=== PATIENT | female | born 1965 | race Caucasian/White ===

== ENCOUNTER 2018-10-13 10:13 | Emergency (ER) | payer OTHER, SELFPAY ==
[2018-10-13 10:15] VITALS: BP 178/90; PULSE 108; RESP 19; TEMP 35.8; O2SAT 99; BMI 40.1
[2018-10-13] MEDS: 0.9% Normal Saline 1,000 ML 125 ML IV (10:30)
--- NOTE | 2018-10-13 10:31 | CT_ITS ---
STUDY: CT ABDOMEN AND PELVIS WITHOUT CONTRAST REASON FOR EXAM: Female, 53 years old. Lower abdominal pain. RADIATION DOSAGE (If Supplied By Facility): CTDIvol = ( 21.95 ) mGy, DLP = ( 1102.42 ) mGycm TECHNIQUE: Transaxial images were obtained from the dome of the diaphragm to the symphysis pubis without oral contrast, and without intravenous contrast. Sagittal and coronal images were reconstructed. Individualized dose optimization techniques were used for this CT. COMPARISON: None. FINDINGS: The visualized lung bases are unremarkable. The visualized portions of the heart are within normal limits. Normal liver. The patient is status post cholecystectomy. Normal spleen. Normal pancreas. Normal bilateral adrenal glands. Normal right kidney. Normal left kidney. Normal visualized stomach. Normal small intestine. There is diverticulosis, with thickening of the colon wall, and pericolonic inflammation changes consistent with acute diverticulitis. The appendix is visualized and appears normal. There is scattered atherosclerotic calcification of the abdominal aorta, without a demonstrated aneurysm. Normal inferior vena cava. Normal retroperitoneum. Normal urinary bladder. There is absence of the uterus consistent with a prior hysterectomy. Normal abdominal wall. There are diffuse degenerative changes of the visualized lumbar spine. Minimal anterior listhesis of L4 on L5. CT/Abdomen/Pelvis without Cont IMPRESSION: Noncomplicated sigmoid diverticulitis. Electronically Signed: Delfin Langford MD at 12:33 EST , Service support ,
--- NOTE | 2018-10-13 10:31 | EKG12_ITS ---
Test Reason : ABD PAIN Blood Pressure : / mmHG Vent. Rate : 102 BPM Atrial Rate : 102 BPM P-R Int : 142 ms QRS Dur : 104 ms QT Int : 358 ms P-R-T Axes : 062 023 048 degrees QTc Int : 466 ms Sinus tachycardia Otherwise normal ECG Confirmed by GEOFFREY REYNA, ANNA ([id number]), editorial clerk NICOLAS BECKETT ([id number] on 10/17/2018 10:38:56 AM Referred By: CONNOR Confirmed By:ANNA HALE MD
[2018-10-13 11:35] LABS: Bacteria 0 SEEN /hpf (None Seen); Mucous, Urine 0 SEEN /hpf (<or=2+); Red Blood Cells-Urine 0 SEEN /hpf (0-5); White Blood Cells 0 SEEN /hpf (0-5)
[2018-10-13 11:37] LABS: Color, Urine Yellow (Yellow); Glucose, Dipstick Normal (Normal); Ketone-Dipstick Negative (Negative); Leukocyte Esterase-Dipstick Negative /ul (Negative); Nitrite-Dipstick Negative (Negative); Occult Blood-Urine Negative /ul (Negative); Protein-Dipstick Negative (Negative); Specific Gravity, Urine 1.005 (1.002-1.030); Urine Bilirubin Dipstick Negative (Negative); Urine Clarity Clear (Clear); Urine Urobilinogen Normal (Normal)
[2018-10-13 11:39] LABS: Absolute Lymphocyte Count 1.57 X10^3/ul (0.83-4.51); Absolute Neutrophil Count 9.2 X10^3/uL (2.0-7.7); Basophil# 0.02 X10^3/uL; Basophil% 0.2 % (0-1); Eosinophil# 0.07 X10^3/uL; Eosinophils% 0.6 % (0-5); Hematocrit 36.8 % (37-47); Hemoglobin 11.9 g/dl (12.0-15.0); Lymphocyte # 1.57 X10^3/ul (4.0); Lymphocyte % 13.5 % (19-41); Mean Corp Hgb Conc 32.3 g/gl (32-36); Mean Corpuscular Hgb 27.6 pg (27.0-32.0); Mean Corpuscular Volume 85.4 fL (81-99); Mean Platelet Vol. 8.7 fl (6.2-12.0); Monocyte# 0.73 X10^3/uL; Monocyte% 6.3 % (0-10); Neutrophil # 9.16 X10^3/uL (2.7-7.7); Neutrophil % 79.1 % (47-70); Platelet Count 231 K/mm3 (150-450); RBC Distribution Width CV 12.9 % (11.6-14.6); RBC Distribution Width SD 40.1 fl (35.1-43.9); Red Blood Count 4.31 M/mm3 (4.2-5.4); White Blood Count 11.6 K/mm3 (4.4-11.0)
[2018-10-13 11:41] LABS: POSITIVE COUNT NO; POSITIVE DIFFERENTIAL NO; POSITIVE MORPHOLOGY NO
[2018-10-13 11:49] LABS: Squamous Epithelial Cells - UA 0-5 SEEN /hpf (5-10)
[2018-10-13 12:02] LABS: ALB/GLOB Ratio 1.1 RATIO (0.9-2.4); AST(SGOT) 19 U/L (15-37); Alanine Aminotransfer ALT/SGPT 31 U/L (13-56); Alkaline Phosphatase 78 U/L (45-117); Anion Gap 11 (5-15); BUN 8 mg/dL (7-18); BUN/Creat Ratio 14.8 RATIO (10-20); Calcium,Total 8.7 mg/dL (8.5-10.1); Chloride 98 mmol/L (98-107); Creatinine, Serum 0.54 mg/dL (0.55-1.02); EST Glomerular Filtration Rate 124 mL/min (>60); Est Glom Filt Rate - Afr Amer 151 mL/min (>60); Estimated Creatinine Clearance 101.65 ml/min; Globulin 3.8 g/dL (2.2-4.2); Glucose 140 mg/dL (74-106); Lipase 68 U/L (73-393); Potassium 3.4 mmol/L (3.5-5.1); Protein, Total 7.8 g/dL (6.4-8.2); Sodium Level 135 mmol/L (136-145)
[2018-10-13 12:45] LABS: Lactic Acid 2.6 mmol/L (0.4-2.0)
--- NOTE | 2018-10-13 12:58 | ED.VISSUMM ---
- ER Visit Summary Date of Service: 10/13/18 Chief Complaint: [] History of Present Illness: The patient is a 53 F [abdominal pain presents the emergency department complaint of abdominal pain that started 2 days ago. Patient complains of some nausea but no vomiting. She denies any blood in her stool or black tarry stool. She denies any fevers. She denies urinary symptoms. Initially patient felt like the pain was upper abdomen and crampy but now more localized to the left lower quadrant and lower abdomen. Patient has prior history of diabetes, hypertension, and high cholesterol. Patient's had prior cholecystectomy.] Physical Examination: [HEENT-PERRLA, EOMI. Cranial nerves II through XII grossly intact. TMs clear. Mucous membranes moist. No adenopathy. Cardiovascular-regular rate and rhythm without murmur or ectopy Lungs-clear to auscultation, chest wall stable without crepitus or subcu emphysema Abdomen-normoactive bowel sounds, soft. Patient has tenderness palpation over left lower quadrant with some guarding. There is some mild superpubic tenderness on palpation. There is no rebound, rigidity, or perineal signs. Extremities-intact ?4, normal range of motion, normal pulses, atraumatic] Test Results: [EKG obtained arrival shows sinus rhythm with a ventricular rate of 102 bpm with no acute I segment changes. CBC with differential short of white count of 11.6, hemoglobin 11.9, hematocrit 37, placed 231. Chemistries unremarkable. BUN was 8 and creatinine 0.54. Lipase was normal at 68. LFTs were normal. Urinalysis was normal. Troponin was less than 0.015. CT scan of the abdomen pelvis without contrast showed acute sigmoid diverticulitis uncomplicated without evidence for perforation or abscess. The appendix was visualized and was normal.] Emergency Department Course and Treatment: [Patient did not initially want any pain medications. She was given Flagyl and Cipro p.o.] Treatment Plan: Patient will be given a prescription for Flagyl and Cipro as well as [place] for pain. She will be referred to Dr. Stanley Solis for follow-up as she has seen him in the past.] Disposition: [Discharged home in stable condition. Advised to return if worsening pain, fever, vomiting, bloody stool, or condition should worsen anyway.] Impression: [Acute sigmoid diverticulitis] This note was generated with Dragon dictation software. It may contain incorrect words, spelling, and punctuation that were not noted in review of the chart prior to signing ED Disposition - Plan for ED Patient: Referrals: Moose Solis III, MD [Primary Care Provider] -
--- NOTE | 2018-10-13 13:02 | ED.DEP ---
ED Disposition - Plan for ED Patient: Instructions: ED Diverticulitis Prescriptions: Hydrocodone Bitart/Apap 5-325 [Gregory 5MG-325MG] 1 tab PO Q4H PRN PRN 2 Days #10 tab PRN Reason: Pain Metronidazole [Flagyl] 500 mg PO Q8H #30 tab Ciprofloxacin [Cipro] 500 mg PO BID #20 tab Referrals: Stanley Solis MD [STAFF PHYSICIAN] - 3-5 Days
[2018-10-13] MEDS: metroNIDAZOLE 500 MG Tablet PO (13:21)
[2018-10-13] MEDS: Ciprofloxacin 250 MG Tablet 500 MG PO (13:22)
== END 2018-10-13 13:37 | disposition home or self-care (01) ==
PROVIDERS: Emergency Provider Emergency Medicine; Family Provider Family Medicine; PCP Family Medicine
DX: K57.32 Diverticulitis of large intestine without perforation or abscess without bleeding (principal); E11.9 Type 2 diabetes mellitus without complications; I10 Essential (primary) hypertension; E78.00 Pure hypercholesterolemia, unspecified; Z79.84 Long term (current) use of oral hypoglycemic drugs; Z79.899 Other long term (current) drug therapy; Z90.49 Acquired absence of other specified parts of digestive tract
CPT/HCPCS: 74176; 80053; 81001; 83605; 83690; 84484; 85025; 93005; 96360; 96361; 99284; J7030; A4216

== ENCOUNTER 2019-02-19 08:03 | Emergency (ER) | payer OTHER, SELFPAY ==
[2019-02-19 08:04] VITALS: BP 126/90; PULSE 66; RESP 16; TEMP 36.8; O2SAT 97; BMI 39.1
--- NOTE | 2019-02-19 08:43 | CT_ITS ---
STUDY: CT BRAIN WITHOUT CONTRAST REASON FOR EXAM: Female, 53 years old. Dizziness RADIATION DOSAGE (If Supplied By Facility): CTDIvol = ( 44.99 ) mGy, DLP = ( 779.24 ) mGycm TECHNIQUE: Transaxial CT imaging of the brain was performed without administration of intravenous contrast material. Individualized dose optimization techniques were used for this CT. COMPARISON: No relevant priors. FINDINGS: Normal soft tissue structures. Normal calvarium. Normal size ventricles and extra-axial spaces for the patient's age. Normal white matter tracts of the cerebral hemispheres. Normal basal ganglia and thalami. Normal brainstem. Normal cerebellum. There is no intracranial hemorrhage. There are no findings of an acute ischemic infarction. Normal visualized paranasal sinuses. CT/Brain/Head without Contrast IMPRESSION: Normal unenhanced CT scan of the brain. Electronically Signed: Mary Jo Ji, at 10:08 EDT Tel , Service support ,
--- NOTE | 2019-02-19 08:46 | ED.DCSUM_ITS ---
- ER Visit Summary Date of Service: 02/19/19 Chief Complaint: Room spinning dizziness History of Present Illness: The patient is a 53 F history of diabetes, hypertension, diverticulitis. Patient states around 1 AM this morning she went to go the bathroom. And had room spinning dizziness. Associated nausea and vomiting. Significant headache. No fever. No abdominal pain or chest pain. She is had vertigo before but states it was never this severe. Much worse with moving her head. Denies any recent head trauma. She is on no blood thinners. Physical Examination: Middle-aged female no acute distress. Vital signs are stable afebrile. HEENT exam unremarkable. Pupils round reactive light. No facial droop. Normal speech. No signs of trauma. Neck nontender. Lungs clear to auscultation bilaterally. Heart regular rhythm rate about 60 no murmur. Abdomen soft and nontender. Normal bowel sounds no peritoneal signs. Moving all 4 extremities neurovascular intact. 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 Dorsi and plantar flexion intact equal and symmetrical bilaterally. Neurologically she is awake and alert. Fingertip to nose within normal limits. NIH score is 0. Positive Hallpike. Movement of her head from side makes her dizziness much worse. Test Results: EKG was done prior to my evaluation. Sinus bradycardia rate of 59 with no acute signs of GA, ischemia or dysrhythmia. He had brain without contrast with no acute abnormality read by radiologist and reviewed by me. CBC unremarkable. White count of 6. Hemoglobin 12. Electrolytes normal normal creatinine and gap. Glucose of 170 she is diabetic. Emergency Department Course and Treatment: Clinically the patient has acute vertigo. She will be treated with IV fluids. IV Zofran. P.o. Valium. Treatment Plan: Repeat exam at 11:43 AM patient feels and looks much better. Dizziness is resolving. Neurologic exam remains normal. She denies her went over all her test results. Discharge to home. Follow-up with primary care. Valium for the vertigo. Antivert during the day if she is going to drive. And Zofran as needed for nausea. Disposition: Discharge Impression: Acute vertigo History of diabetes and hypertension This note was generated with Telsimaation software. It may contain incorrect words, spelling, and punctuation that were not noted in review of the chart prior to signing ED Disposition - Plan for ED Patient: Referrals: Moose Solis III, MD [Primary Care Provider] -
[2019-02-19 08:51] LABS: Absolute Lymphocyte Count 1.07 X10^3/ul (0.83-4.51); Absolute Neutrophil Count 5.3 X10^3/uL (2.0-7.7); Basophil# 0.03 X10^3/uL; Basophil% 0.4 % (0-1); Eosinophil# 0.06 X10^3/uL; Eosinophils% 0.9 % (0-5); Hematocrit 38.2 % (37-47); Hemoglobin 12.7 g/dl (12.0-15.0); Lymphocyte # 1.07 X10^3/ul (4.0); Lymphocyte % 15.8 % (19-41); Mean Corp Hgb Conc 33.2 g/gl (32-36); Mean Corpuscular Hgb 27.5 pg (27.0-32.0); Mean Corpuscular Volume 82.7 fL (81-99); Mean Platelet Vol. 8.7 fl (6.2-12.0); Monocyte# 0.32 X10^3/uL; Monocyte% 4.7 % (0-10); Neutrophil # 5.27 X10^3/uL (2.7-7.7); Neutrophil % 77.8 % (47-70); POSITIVE COUNT NO; POSITIVE DIFFERENTIAL NO; POSITIVE MORPHOLOGY NO; Platelet Count 273 K/mm3 (150-450); RBC Distribution Width CV 13.6 % (11.6-14.6); RBC Distribution Width SD 41.3 fl (35.1-43.9); Red Blood Count 4.62 M/mm3 (4.2-5.4); White Blood Count 6.8 K/mm3 (4.4-11.0)
[2019-02-19 08:57] LABS: Anion Gap 9 (5-15); BUN 14 mg/dL (7-18); BUN/Creat Ratio 21.9 RATIO (10-20); Calcium,Total 9.1 mg/dL (8.5-10.1); Chloride 101 mmol/L (98-107); Creatinine, Serum 0.64 mg/dL (0.55-1.02); EST Glomerular Filtration Rate 103 mL/min (>60); Est Glom Filt Rate - Afr Amer 124 mL/min (>60); Estimated Creatinine Clearance 85.77 ml/min; Glucose 170 mg/dL (74-106); Potassium 3.8 mmol/L (3.5-5.1); Sodium Level 136 mmol/L (136-145)
[2019-02-19] MEDS: 0.9% Normal Saline 1,000 ML 1000 ML IV (08:57)
[2019-02-19] MEDS: Ondansetron 4 MG/2 ML Vial IV (08:57)
[2019-02-19] MEDS: diazePAM 5 MG Tablet 10 MG PO (09:00)
--- NOTE | 2019-02-19 11:50 | ED.DEP ---
ED Disposition - Plan for ED Patient: Disposition: Home or Assisted Living Instructions: Benign Positional Vertigo Prescriptions: Meclizine HCl [Antivert] 25 mg PO 4X/DAY PRN PRN #14 tab PRN Reason: Vertigo Prescription Printed Diazepam [Valium] 5 mg PO Q8 PRN #10 tab PRN Reason: Muscle Spasm Prescription Printed Ondansetron [Zofran Odt] 4 mg PO Q8H PRN PRN #10 tab PRN Reason: Nausea Prescription Printed Referrals: Moose Solis III, MD [Primary Care Provider] - 3-5 Days if not improving Additional Instructions: Valium as needed for the dizziness. Do not drive while taking the Valium. It may make you sleepy. Antivert as needed for the dizziness. Zofran as needed for nausea. It would do nothing for the vertigo so only take it if you are nauseated. Follow-up with your doctor if not improving or return to ER feeling worse.
[2019-02-19 12:06] VITALS: PULSE 75; RESP 14; O2SAT 98
== END 2019-02-19 12:12 | disposition home or self-care (01) ==
PROVIDERS: Emergency Provider Emergency Medicine; Family Provider Family Medicine; PCP Family Medicine
DX: R42 Dizziness and giddiness (principal); E11.9 Type 2 diabetes mellitus without complications; I10 Essential (primary) hypertension; R11.2 Nausea with vomiting, unspecified; R51 Headache; R00.1 Bradycardia, unspecified; Z79.84 Long term (current) use of oral hypoglycemic drugs; Z79.899 Other long term (current) drug therapy; Z87.19 Personal history of other diseases of the digestive system
CPT/HCPCS: 70450; 80048; 85025; 96361; 96374; 99284; J7030; J2405

== ENCOUNTER → 2020-03-19 | Outpatient (CLI) | payer OTHER, SELFPAY | END | disposition home or self-care (01) | LOC: LABSPEC 09:33 | PROVIDERS: PCP Family Medicine; Referring Provider Family Medicine; Visit Provider Family Medicine | DX: U07.1 COVID-19 (principal); Z20.828 Contact with and (suspected) exposure to other viral communicable diseases | CPT/HCPCS: 87635; G2023; U0003 ==